=== PATIENT | female | born 1995 | race Hispanic/Latino ===

== ENCOUNTER 2018-09-09 06:28 | Day surgery (SDC) | payer BC ==
[2018-09-07 16:01] LABS: Absolute Lymphocytes (CBC) 1.7 K/uL (0.7-4.9); Absolute Monocytes 0.3 K/uL (0.1-1.3); Absolute Neutrophil 3.8 K/uL (1.8-8.0); Basophils % 0.6 % (0-1.3); Eosinophils % 1.8 % (0-4.4); Hematocrit 39.7 % (36.0-45.0); Lymphocytes % 28.3 % (15.3-44.8); MPV 8.7 fL (7.6-11.3); Monocytes % 5.7 % (3.3-12.3); RBC Red Blood Cell Count 4.54 M/uL (3.86-4.86)
[2018-09-07 16:13] LABS: Potassium 3.9 mmol/L (3.5-5.1)
[2018-09-09] MEDS ORDERED: Ringers Lactate 1,000 ML IV ONE (07:02)
[2018-09-09] MEDS ORDERED: LIDOCAINE 1% MPF 5 ML VIAL ONE (07:07)
[2018-09-09] MEDS ORDERED: BUPIVACAINE 0.5% PF 10 ML VIAL ONE (07:26)
[2018-09-09] MEDS ORDERED: PROPOFOL 200 MG/20 ML VIAL IV ONE (07:29)
[2018-09-09] MEDS ORDERED: MIDAZOLAM HCL 2 MG/2 ML INJ ONE (07:30)
[2018-09-09] MEDS ORDERED: FENTANYL CITR 100 MCG/2 ML ONE (07:30)
[2018-09-09] MEDS ORDERED: LIDOCAINE 2% MPF 5 ML VIAL ONE (07:30)
[2018-09-09] MEDS ORDERED: ONDANSETRON 4 MG/2 ML VIAL ONE (07:31)
[2018-09-09] MEDS ORDERED: CEFAZOLIN 1GM (PREMIX IV) 0 GM/0 ML BAG ONE (07:51)
[2018-09-09] MEDS ORDERED: CEFAZOLIN 1GM (PREMIX IV) 1 GM/50 ML BAG ONE (07:55)
--- NOTE | 2018-09-09 08:22 | P.BOP ---
Preoperative diagnosis: right axillary tender enlarging mass Postoperative diagnosis: same Primary procedure: Excisional biopsy of deep right axillary tender mass 7x5cm Specimen: mass, possible accesory breast tissue Findings: as above Anesthesia: General Complications: None Transferred to: Recovery Room Condition: Good
[2018-09-09] MEDS ORDERED: CODEINE 30MG/APAP 300MG TAB ONE (10:09)
--- NOTE | 2018-09-10 02:25 | OP ---
Date of Procedure: 09/09/2018 Surgeon: Joel Jasso MD Preoperative Diagnosis: Right axillary enlarging tender mass, deep in the subcutaneous tissue. Postoperative Diagnosis: Right axillary enlarging tender mass, deep in the subcutaneous tissue. Procedure: Excisional biopsy of deep right axillary tender mass, 7 x 5 cm. Anesthesia: General plus local. Findings: Fatty tissue. Cannot rule out axis of the breast tissue. This is a case of a female who comes to us with enlarging mass in the axillary region in the lateral side of the axilla, has a breas t on 1 side and normal axilla and then this mass the soft tissue tumor on the lateral side of the axi lla on the proximal arm. She has been trying to see if she keep an eye on it to see if it goes away, but it has not. It is getting bigger, more tender and she wants that excised. The benefits, altern atives, and risks of excision were fully explained which include but are not limited to infection, bl eeding, damage to adjacent structures, anesthesia complication, nonhealing wound, AL, and even . She also understands this may not relieve her symptoms. She might need more than one surgical inte rvention. She understood, signed a consent. The area of concern was marked by me and the patient in the holding room. Description Of Procedure: The patient was brought to the operating room, placed in supine position, anesthesia was induced without complication. The right arm and axillary area were prepped and draped in sterile fashion. We have to remove the mass with some of the skin, so we made a wedge incision o n the skin. Incision was carried down to deep axillary area since it seems to be attached to the sub cutaneous tissue. We did this in a wedge fashion all the way down to the axillary area. The mass wa s excised. The area was irrigated. Hemostasis was obtained and this was closed in layers with 3-0 c hromic, deep inside, 3-0 chromic mid side, 3-0 chromic in subcuticular and then enoch on the skin. Sponge count and instrument counts were correct. The patient tolerated the procedure well. The pat ient was sent to Recovery in stable condition. Preoperative Diagnoses: Right axillary tender enlarging mass. Disposition: Home. Activity: As tolerated. No lifting. Followup: Follow up in my office in 1 week. Call for appointment [phone]. Keep the area dry for 4 8 hours, then may shower. Medications: See orders. HM/MODL Voice ID: [id number] Report ID: [id number]
== END 2018-09-09 10:38 | disposition home or self-care (01) ==
LOC: OR 06:28
PROVIDERS: ATTEND Surgery
PROC: 0JBD0ZZ Excision of Right Upper Arm Subcutaneous Tissue and Fascia, Open Approach (ICD-10-PCS; principal; 2018-09-09 07:30)
DX: R22.31 Localized swelling, mass and lump, right upper limb (principal)
CPT/HCPCS: 36415; 80048; 81025; 85025; 88304; 88305; J0690; J2250; J2405; J2704; J3010

== ENCOUNTER 2018-09-11 13:21 | Emergency (ER) | payer BC ==
[2018-09-11 15:11] LABS: Urine Blood NEGATIVE (NEG); Urine Glucose NEGATIVE (NEG); Urine Protein NEGATIVE (NEG); Urine pH 6.5 (5.0-7.0)
[2018-09-11 15:28] LABS: Urine Bacteria <20 /HPF (<20); Urine Culture Reflex Order NOT NEEDED; Urine Mucus 1+ /HPF (NONE SEEN); Urine RBC <5 /HPF (NONE SEEN)
[2018-09-11] MEDS ORDERED: SIMETHICONE 80 MG TAB PO SCH (16:00)
[2018-09-11 16:19] LABS: Potassium 4.2 mmol/L (3.5-5.1)
[2018-09-11] MEDS ORDERED: NA CHLORIDE 0.9% 1,000 ML ONE (16:19)
[2018-09-11] MEDS ORDERED: FAMOTIDINE 20 MG/2 ML VIAL IV ONE (16:48)
--- NOTE | 2018-09-11 18:06 | ER ---
Nurse's Notes [facility] Name: Mariana Contreras Age: 23 yrs Sex: Female : 1995 Arrival Date: 09/11/2018 Time: 13:24 Bed 14 Private MD: Diagnosis: Gas pain Presentation: 09/11 13:30 Presenting complaint: Patient states: lower abd pain, n/v x 1 day. Transition of care: sv patient was not received from another setting of care. Onset of symptoms was September 10, 2018. Care prior to arrival: None. 13:30 Method Of Arrival: Ambulatory sv 13:30 Acuity: YECENIA 3 sv 17:24 Initial Sepsis Screen: Does the patient meet any 2 criteria? No. Patient's initial jl7 sepsis screen is negative. Does the patient have a suspected source of infection? No. Patient's initial sepsis screen is negative. 17:24 Risk Assessment: Do you want to hurt yourself or someone else? Patient reports no jl7 desire to harm self or others. Triage Assessment: 13:30 General: Appears in no apparent distress. uncomfortable, Behavior is calm, cooperative, sv appropriate for age. Pain: Complains of pain in right lower quadrant and left lower quadrant Pain currently is 7 out of 10 on a pain scale. Neuro: Level of Consciousness is awake, alert, obeys commands, Oriented to person, place, time, situation, Moves all extremities. Full function. Respiratory: Respiratory effort is even, unlabored, Respiratory pattern is regular, symmetrical. Historical: - Allergies: 13:31 No Known Allergies; sv - PMHx: 13:31 None; sv - PSHx: 13:31 I\T\D right arm; sv - Immunization history:: Flu vaccine is not up to date. - Social history:: Smoking status: Patient/guardian denies using tobacco. - Ebola Screening: : No symptoms or risks identified at this time. Screenin:39 Abuse screen: Denies threats or abuse. Denies injuries from another. Nutritional sv screening: No deficits noted. Tuberculosis screening: No symptoms or risk factors identified. Fall Risk None identified. Assessment: 14:00 General: Appears in no apparent distress. uncomfortable, Behavior is calm, cooperative, jl7 appropriate for age. Pain: Complains of pain in left lower quadrant and right lower quadrant Pain currently is 8 out of 10 on a pain scale. Quality of pain is described as crampy, Pain began 1 day ago. Is continuous. Neuro: Level of Consciousness is awake, alert, obeys commands, Oriented to person, place, time, situation. Cardiovascular: Patient's skin is warm and dry. Respiratory: Airway is patent Respiratory effort is even, unlabored, Respiratory pattern is regular, symmetrical. GI: Bowel sounds present X 4 quads. Abd is soft and non tender in right upper quadrant and left upper quadrant Abdomen is tender to palpation in right lower quadrant and left lower quadrant. : No signs and/or symptoms were reported regarding the genitourinary system. EENT: No signs and/or symptoms were reported regarding the EENT system. Derm: Skin is pink, warm \T\ dry. Musculoskeletal: No signs and/or symptoms reported regarding the musculoskeletal system. 15:30 Reassessment: Patient appears in no apparent distress at this time. Patient and/or jl7 family updated on plan of care and expected duration. Pain level reassessed. Patient is alert, oriented x 3, equal unlabored respirations, skin warm/dry/pink. 16:30 Reassessment: Patient appears in no apparent distress at this time. Patient and/or jl7 family updated on plan of care and expected duration. Pain level reassessed. Patient is alert, oriented x 3, equal unlabored respirations, skin warm/dry/pink. Patient states symptoms have improved. 17:30 Reassessment: Patient and/or family updated on plan of care and expected duration. Pain jl7 level reassessed. Patient is alert, oriented x 3, equal unlabored respirations, skin warm/dry/pink. Patient denies pain at this time. Patient states feeling better. Patient states symptoms have improved. Vital Signs: 13:31 BP 135 / 86; Pulse 81; Resp 22; Temp 98; Pulse Ox 100% ; Weight 68.04 kg; Height 5 ft. sv 6 in. (167.64 cm); Pain 7/10; 16:04 BP 116 / 72; Pulse 72; Resp 17; Temp 98.9(O); Pulse Ox 96% on R/A; mh5 17:04 BP 123 / 70; Pulse 75; Resp 17; Temp 98.7(O); Pulse Ox 100% on R/A; mh5 17:49 BP 118 / 71; Pulse 76; Resp 14; Temp 98.4(O); Pulse Ox 100% on R/A; mh5 13:31 Body Mass Index 24.21 (68.04 kg, 167.64 cm) ED Course: 13:24 Patient arrived in ED. rg4 13:31 Triage completed. sv 13:31 Arm band placed on. sv 13:39 Patient has correct armband on for positive identification. Placed in gown. Bed in low sv position. Call light in reach. Door closed. Head of bed elevated. 13:41 [facility]C [facility] snw 13:41 Chad Larson MD is Attending Physician. snw 13:41 Yesenia Tiwari RN is Primary Nurse. jl7 15:54 Initial lab(s) drawn, by me, sent to lab. Inserted saline lock: 20 gauge in right [facility] antecubital area, using aseptic technique. Blood collected. 18:41 No provider procedures requiring assistance completed. IV discontinued, intact, jl7 bleeding controlled, No redness/swelling at site. Pressure dressing applied. Administered Medications: 15:23 Drug: Simethicone 160 mg Route: PO; jl7 16:00 Follow up: Response: No adverse reaction; Pain is decreased jl7 16:10 Drug: NS 0.9% 1000 ml Route: IV; Rate: 1 bolus; Site: right antecubital; jl7 17:00 Follow up: IV Status: Completed infusion jl7 16:40 Drug: Pepcid 20 mg Route: PO; jl7 17:00 Follow up: Response: No adverse reaction; Marked relief of symptoms jl7 Outcome: 18:04 Discharge ordered by . snw 18:41 Discharged to home ambulatory. jl7 18:41 Condition: stable 18:41 Discharge instructions given to patient, family, Instructed on discharge instructions, follow up and referral plans. medication usage, Demonstrated understanding of instructions, follow-up care, medications, Prescriptions given X 1. 18:43 Patient left the ED. jl7 Signatures: Lizzy Marrero RN RN Theresa Payne FNP-C FNP-Mary [facility] Rubio [facility] Ioana Jasso [facility] Yesenia Tiwari RN RN jl7
--- NOTE | 2018-09-11 18:06 | EDPHYS ---
Physician Documentation [facility] Name: Mariana Contreras Age: 23 yrs Sex: Female : 1995 Arrival Date: 09/11/2018 Time: 13:24 Bed 14 Private MD: ED Physician Chad Larson HPI: 09/11 18:07 This 23 yrs old Female presents to ER via Ambulatory with complaints of snw Abdominal Pain. 18:07 The patient presents with abdominal pain abdominal distention that is diffuse. Onset: snw The symptoms/episode began/occurred suddenly. The symptoms do not radiate. Associated signs and symptoms: none. The symptoms are described as sharp, shooting. Severity of pain: At its worst the pain was severe incapacitating. The patient has not experienced similar symptoms in the past. The patient has been recently seen by a physician: recent surgery to I\T\D an abscess. Historical: - Allergies: 13:31 No Known Allergies; sv - PMHx: 13:31 None; sv - PSHx: 13:31 I\T\D right arm; sv - Immunization history:: Flu vaccine is not up to date. - Social history:: Smoking status: Patient/guardian denies using tobacco. - Ebola Screening: : No symptoms or risks identified at this time. ROS: 18:07 Constitutional: Negative for fever, chills, and weight loss, Eyes: Negative for injury, snw pain, redness, and discharge, ENT: Negative for injury, pain, and discharge, Neck: Negative for injury, pain, and swelling, Cardiovascular: Negative for chest pain, palpitations, and edema, Respiratory: Negative for shortness of breath, cough, wheezing, and pleuritic chest pain, Back: Negative for injury and pain, : Negative for injury, bleeding, discharge, and swelling, MS/Extremity: Negative for injury and deformity, Skin: Negative for injury, rash, and discoloration, Neuro: Negative for headache, weakness, numbness, tingling, and seizure. 18:07 Abdomen/GI: Positive for abdominal pain, abdominal cramps, of the right upper quadrant, left upper quadrant, right lower quadrant and left lower quadrant. Exam: 14:35 Constitutional: This is a well developed, well nourished patient who is awake, alert, snw and in no acute distress. Head/Face: Normocephalic, atraumatic. Eyes: Pupils equal round and reactive to light, extra-ocular motions intact. Lids and lashes normal. Conjunctiva and sclera are non-icteric and not injected. Cornea within normal limits. Periorbital areas with no swelling, redness, or edema. ENT: Nares patent. No nasal discharge, no septal abnormalities noted. Tympanic membranes are normal and external auditory canals are clear. Oropharynx with no redness, swelling, or masses, exudates, or evidence of obstruction, uvula midline. Mucous membranes moist. Neck: Trachea midline, no thyromegaly or masses palpated, and no cervical lymphadenopathy. Supple, full range of motion without nuchal rigidity, or vertebral point tenderness. No Meningismus. Chest/axilla: Normal chest wall appearance and motion. Nontender with no deformity. No lesions are appreciated. Cardiovascular: Regular rate and rhythm with a normal S1 and S2. No gallops, murmurs, or rubs. Normal PMI, no JVD. No pulse deficits. Respiratory: Lungs have equal breath sounds bilaterally, clear to auscultation and percussion. No rales, rhonchi or wheezes noted. No increased work of breathing, no retractions or nasal flaring. Back: No spinal tenderness. No costovertebral tenderness. Full range of motion. Skin: Warm, dry with normal turgor. Normal color with no rashes, no lesions, and no evidence of cellulitis. MS/ Extremity: Pulses equal, no cyanosis. Neurovascular intact. Full, normal range of motion. Neuro: Awake and alert, GCS 15, oriented to person, place, time, and situation. Cranial nerves II-XII grossly intact. Motor strength 5/5 in all extremities. Sensory grossly intact. Cerebellar exam normal. Normal gait. Psych: Awake, alert, with orientation to person, place and time. Behavior, mood, and affect are within normal limits. 14:35 Abdomen/GI: Inspection: distension, that is moderate, Bowel sounds: hyperactive, in all quadrants, Palpation: moderate abdominal tenderness, severe abdominal tenderness. Vital Signs: 13:31 BP 135 / 86; Pulse 81; Resp 22; Temp 98; Pulse Ox 100% ; Weight 68.04 kg; Height 5 ft. sv 6 in. (167.64 cm); Pain 7/10; 16:04 BP 116 / 72; Pulse 72; Resp 17; Temp 98.9(O); Pulse Ox 96% on R/A; mh5 17:04 BP 123 / 70; Pulse 75; Resp 17; Temp 98.7(O); Pulse Ox 100% on R/A; mh5 17:49 BP 118 / 71; Pulse 76; Resp 14; Temp 98.4(O); Pulse Ox 100% on R/A; mh5 13:31 Body Mass Index 24.21 (68.04 kg, 167.64 cm) sv MDM: 14:06 Patient medically screened. snw 18:06 Data reviewed: vital signs, nurses notes. Data interpreted: Pulse oximetry: on room air snw is 100 %. Interpretation: normal. Counseling: I had a detailed discussion with the patient and/or guardian regarding: the historical points, exam findings, and any diagnostic results supporting the discharge/admit diagnosis, lab results, the need for outpatient follow up, to return to the emergency department if symptoms worsen or persist or if there are any questions or concerns that arise at home. Response to treatment: the patient's symptoms have markedly improved after treatment, and as a result, I will discharge patient. Special discussion: Based on the patient's Hx, exam, and Dx evaluation, there is no indication for emergent surgery or inpatient Tx. It is understood by the patient/guardian that if the Sx's persist or worsen they need to return immediately for re-evaluation. Based on the history and exam findings, there is no indication for further emergent testing or inpatient evaluation. I discussed with the patient/guardian the need to see the primary care provider for further evaluation of the symptoms. 09/11 13:43 Order name: Urine Culture snw 09/11 13:43 Order name: Urine Microscopic Only; Complete Time: 15:29 snw 09/11 14:53 Order name: Urine Dipstick--Ancillary (enter results); Complete Time: 15:12 eb 09/11 14:53 Order name: Urine --Ancillary (enter results); Complete Time: 15:12 eb 09/11 15:56 Order name: Chem 7; Complete Time: 16:19 5 09/11 13:43 Order name: Urine Dipstick-Ancillary (obtain specimen); Complete Time: 14:46 snw Administered Medications: 15:23 Drug: Simethicone 160 mg Route: PO; jl7 16:00 Follow up: Response: No adverse reaction; Pain is decreased jl7 16:10 Drug: NS 0.9% 1000 ml Route: IV; Rate: 1 bolus; Site: right antecubital; jl7 17:00 Follow up: IV Status: Completed infusion jl7 16:40 Drug: Pepcid 20 mg Route: PO; jl7 17:00 Follow up: Response: No adverse reaction; Marked relief of symptoms jl7 Disposition: 19:04 Co-signature as Attending Physician, Chad Larson MD. rn Disposition: 09/11/18 18:04 Discharged to Home. Impression: Gas pain. - Condition is Stable. - Discharge Instructions: Abdominal Pain, Adult, Intestinal Gas and Gas Pains, Pediatric. - Prescriptions for Gas- X Ultra-Strength - take 1 blisters by ORAL route 1-3 times daily As needed; 1 box. - Medication Reconciliation Form, Thank You Letter, Antibiotic Education, Prescription Opioid Use form. - Follow up: Private Physician; When: 2 - 3 days; Reason: Recheck today's complaints, Continuance of care, Re-evaluation by your physician. Follow up: Emergency Department; When: As needed; Reason: Worsening of condition. Signatures: Dispatcher [employer] EDLizzy Nix, RN RN Theresa Estevez, CREDENTIALING COORDINATOR-C CREDENTIALING COORDINATOR-Csnw Chad Larson MD MD rn Leal, Jahala, RN RN jl7 Corrections: (The following items were deleted from the chart) 14:05 13:43 Urine Test ordered. snw snw 18:07 14:36 Constitutional: Positive for snw snw 18:43 18:04 09/11/2018 18:04 Discharged to Home. Impression: Gas pain. Condition is Stable. jl7 Forms are Medication Reconciliation Form, Thank You Letter, Antibiotic Education, Prescription Opioid Use. Follow up: Private Physician; When: 2 - 3 days; Reason: Recheck today's complaints, Continuance of care, Re-evaluation by your physician. Follow up: Emergency Department; When: As needed; Reason: Worsening of condition. snw
== END 2018-09-11 18:43 | disposition home or self-care (01) ==
LOC: ER 13:21
DX: R14.1 Gas pain (principal)
CPT/HCPCS: 36415; 80048; 81003; 81015; 81025; 87086; 87088; J7030